=== PATIENT | male | born 1990 | race Caucasian/White ===

== ENCOUNTER 2022-05-10 08:16 | Outpatient (CLI) | payer OTHER ==
[2022-05-10] MEDS ORDERED: Iopamidol 370 76% 100 ML VIAL ONE (13:31)
== END 2022-05-10 08:17 | disposition home or self-care (01) ==
LOC: BICCT 08:16
PROVIDERS: ATTEND Physician Assistant Medical
DX: R10.13 Epigastric pain (principal); R11.2 Nausea with vomiting, unspecified
CPT/HCPCS: 74177